=== PATIENT | male | born 1950 | race Caucasian/White ===

== ENCOUNTER 2018-01-21 15:50 | Emergency (ER) | payer BC ==
[2018-01-21] MEDS ORDERED: Lidocaine 1%* 5 ML VIAL INJ ONE (16:10)
[2018-01-21] MEDS ORDERED: Lidocaine 1% INJ* 10 MG/ML 30 ML SDV ONE (16:13)
--- NOTE | 2018-01-21 16:26 | ED ---
Head Injury - HPI Summary HPI Summary: 67-year-old male presents with head injury and right ear laceration today. He states that he went to get onto the mower and he tripped and fell and landed on the floor on his right side. He has abrasion noted to his right cheek. His laceration of his right ear through the earlobe. He is unsure of his last tetanus. He denies any neck pain. He denies any other injury. He denies loss conscious. He was very dizzy but that has since resolved. No nausea no vomiting. He is not on blood thinners. He denies any change in vision. He denies any blurry vision. No photophobia. The area is not actively bleeding. - History Of Current Complaint Chief Complaint: EDFacialInjury Stated Complaint: FALL/HEAD LAC Time Seen by Provider: 01/21/18 16:02 Pain Intensity: 3 - Allergies/Home Medications Allergies/Adverse Reactions: Allergies Allergy/AdvReac Type Severity Reaction Status Date / Time No Known Allergies Allergy Verified 01/21/18 16:00 PMH/Surg Hx/FS Hx/Imm Hx Endocrine/Hematology History: Denies: Hx Diabetes Cardiovascular History: Denies: Hx Congestive Heart Failure History: Denies: Hx Renal Disease - Immunization History Date of Tetanus Vaccine: unknown Infectious Disease History: No Infectious Disease History: Denies: Traveled Outside the [place] in Last 30 Days - Family History Known Family History: Positive: Hypertension - Social History Alcohol Use: Occasionally Substance Use Type: Reports: None Hx Tobacco Use: Yes Smoking Status (MU): Never Smoked Tobacco Review of Systems Negative: Fever Negative: Chest Pain Negative: Shortness Of Breath Negative: Vomiting, Nausea Positive: Other - right ear laceration Positive: Headache All Other Systems Reviewed And Are Negative: Yes Physical Exam Triage Information Reviewed: Yes Vital Signs On Initial Exam: Initial Vitals Temp Pulse Resp BP Pulse Ox 96.9 F 90 18 125/92 98 01/21/18 15:56 01/21/18 15:56 01/21/18 15:56 01/21/18 15:56 01/21/18 15:56 Vital Signs Reviewed: Yes Appearance: Positive: Well-Appearing Skin: Positive: Warm, Dry, Other - 1cm through and through ear laceration of right ear, abrasion right side of face Head/Face: Positive: Normal Head/Face Inspection, Other - no step off, racoon eyes, wan sign Eyes: Positive: Normal, EOMI, RIO, Conjunctiva Clear ENT: Positive: Normal ENT inspection, Pharynx normal, TMs normal Respiratory/Lung Sounds: Positive: Clear to Auscultation, Breath Sounds Present Cardiovascular: Positive: Normal, RRR Musculoskeletal: Positive: Normal Neurological: Positive: Sensory/Motor Intact, Alert, Oriented to Person Place, Time, CN Intact II-III Psychiatric: Positive: Normal - [place] Coma Scale Best Eye Response: 4 - Spontaneous Best Motor Response: 6 - Obeys Commands Best Verbal Response: 5 - Oriented Coma Scale Total: 15 Procedures - Laceration/Wound Repair 1 Location: Other - right ear laceration Description: Linear Anesthesia: Local, 1.0% Length, Depth and Shape: 1cm through and through Irrigated w/ Saline (ccs): 200 Laceration/Wound Explored: no foreign body removed Closure: Single Layer Number of Sutures: 6 Layer Closure?: No Sterile Dressing Applied?: No Diagnostics - Vital Signs Vital Signs Temp Pulse Resp BP Pulse Ox 01/21/18 15:56 96.9 F 90 18 125/92 98 - Laboratory Lab Statement: Any lab studies that have been ordered have been reviewed, and results considered in the medical decision making process. - CT brain CT Interpretation: No Acute Changes CT Interpretation Completed By: Radiologist maxillaryfacial CT Interpretation: No Acute Changes CT Interpretation Completed By: Radiologist Head Injury Course/Dx Course Of Treatment: 67-year-old male presents with head injury and right ear laceration today. He states that he went to get onto the mower and he tripped and fell and landed on the floor on his right side. He has abrasion noted to his right cheek. His laceration of his right ear through the earlobe. He is unsure of his last tetanus. He denies any neck pain. He denies any other injury. He denies loss conscious. He was very dizzy but that has since resolved. No nausea no vomiting. He is not on blood thinners. He denies any change in vision. He denies any blurry vision. No photophobia. The area is not actively bleeding. On exam has 1 cm through and through laceration of the right ear. Neurovascular intact. He has abrasion noted to right face. CT brain and maxillary facial normal. Cleaned the ear and placed [address] on Keflex. Patient understands agrees with plan. - Diagnoses Differential Diagnosis/HQI/PQRI: Concussion Without LOC, Contusion, Laceration, Orbital Fracture Provider Diagnoses: Head injury, Ear lobe laceration, Contusion of face Discharge - Sign-Out/Discharge Documenting (check all that apply): Discharge/Admit/Transfer - Discharge Plan Condition: Good Disposition: HOME Prescriptions: Cephalexin CAP* [Keflex CAP*] 500 mg PO BID #9 cap Patient Education Materials: Care For Your Stitches (ED), Head Injury (ED) Referrals: Patti Cadena MD [Primary Care Provider] - Additional Instructions: Place ice on area as needed Keep laceration dry for next 24 hours Take Tylenol for headache every 6 hours suture removal in 5 days Take antibiotic twice a day for 5 days Follow up with primary within 5 days Return to ED if develop any new or worsening symptoms - Billing Disposition and Condition Condition: GOOD Disposition: HOME
[2018-01-21] MEDS ORDERED: Tetan/Diph/Pertus SYR(Tdap)* 0.5 ML SYR(BOOSTRIX) use SYR IM ONE (16:27)
[2018-01-21] MEDS ORDERED: Cephalexin CAP* 500 MG PO ONE (16:31)
--- NOTE | 2018-01-21 17:25 | RAD ---
Indication: Head injury. Comparison: No relevant prior exams available on the [facility] for comparison. Technique: Noncontrast CT vertex of skull through foramen magnum. Report: The sulci, ventricles, and basal cisterns are normal for age. Bacon matter white matter differentiation is preserved without evidence for edema. No intra or extra axial hemorrhage is detected. Unremarkable visualized orbital contents. Negative for calvarial or skull base fracture. Negative for scalp hematoma. The visualized paranasal sinuses and mastoid air spaces are clear. IMPRESSION: No CT evidence for traumatic brain injury.
--- NOTE | 2018-01-21 17:32 | RAD ---
INDICATION: Head and face injury. COMPARISON: Head CT of the same date. TECHNIQUE: Multidetector CT base of the skull through mandible without contrast. Multiplanar reformation. REPORT: Artifact from dental amalgam. Soft tissue swelling at the chin. No loculated soft tissue plane hematoma evident. The orbital and maxillary sinus margins, zygomatic arches, lamina papyracea, base of the maxilla, pterygoid plates, and nasal bones are intact. The mandible is intact. Normal temporal mandibular joint alignment. 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 Normally aerated paranasal sinuses and mastoid air spaces. IMPRESSION: Negative for maxillofacial fracture. Soft tissue swelling at the chin. No loculated soft tissue plane hematoma evident.
[2018-01-21 17:42] VITALS: BP 133/67
== END 2018-01-21 17:40 | disposition home or self-care (01) ==
LOC: ED 15:50
DX: S09.90XA Unspecified injury of head, initial encounter (principal); S00.83XA Contusion of other part of head, initial encounter; S01.311A Laceration without foreign body of right ear, initial encounter; R42 Dizziness and giddiness; W01.0XXA Fall on same level from slipping, tripping and stumbling without subsequent striking against object, initial encounter; Y92.9 Unspecified place or not applicable
CPT/HCPCS: 12001; 70450; 70486; 90471; 90715; 96374; 99283; A9270-GY